=== PATIENT | female | born 1970 | race Two or more races ===

== ENCOUNTER 2018-09-15 14:24 | Emergency (ER) | payer SELFPAY ==
--- NOTE | 2018-09-15 14:45 | ER Report ---
History and Physical Time Seen By MD: 14:42 HPI/ROS CHIEF COMPLAINT: Right upper quadrant pain HISTORY OF PRESENT ILLNESS: This is a 40-year-old female presents to the emergency department for right upper quadrant pain. Patient states that over the last 2 weeks she's had increased abdominal pain, gassy, and intermittent very hard bowel movements. Patient states last problem was about 3 days ago. Patient denies chest pain or shortness of breath. She also states that it is abnormal for her to have no bowel movement in 3 days, normally she is regular. No rashes or any other concerns. No dysuria. REVIEW OF SYSTEMS: Constitutional: No fever, no chills. Eyes: No discharge. ENT: No sore throat. Cardiovascular: No chest pain, no palpitations. Respiratory: No cough, no shortness of breath. Gastrointestinal: As above. Genitourinary: No hematuria. Musculoskeletal: No back pain. Skin: No rashes. Neurological: No headache. Allergies: Coded Allergies: No Known Drug Allergies (Unverified , 09/15/18) Home Meds No Active Prescriptions or Reported Meds Past Medical/Surgical History The patient has a past medical and surgical history of asthma, tuberculosis, or bladder disease, hiatal hernia, left ankle fracture, "prediabetic". Reviewed Nurses Notes: Yes Constitutional Vital Sign - Last 24 Hours 09/15/18 09/15/18 09/15/18 09/15/18 14:47 14:49 14:54 15:00 Temp 98.5 Pulse 74 71 Resp 20 B/P (MAP) 143/87 143/87 (105) 120/79 (93) Pulse Ox 95 94 O2 Delivery Room Air 09/15/18 09/15/18 09/15/18 09/15/18 15:24 15:30 15:54 16:00 Pulse 73 69 71 B/P (MAP) 120/93 (102) Pulse Ox 91 93 97 09/15/18 09/15/18 09/15/18 16:30 17:00 17:30 B/P (MAP) 80/64 (69) 131/81 (98) 133/89 (104) Pulse Ox 95 Physical Exam General Appearance: The patient is alert, has no immediate need for airway protection and no signs of toxicity. Eyes: Pupils equal and round no pallor or injection. ENT, Mouth: Mucous membranes are moist. Respiratory: There are no retractions, lungs are clear to auscultation. Cardiovascular: Regular rate and rhythm, systolic murmur, no clicks or rubs. Gastrointestinal: Abdomen is very round, soft and tenderness to the right upper quadrant with palpation, distant but normoactive bowel sounds. No masses. No abdominal bruits. Neurological: Alert and oriented 4. Moving all extremities. Following all commands. No focal neuro deficits. Skin: Warm and dry, no rashes. Musculoskeletal: Neck is supple non tender. Extremities are nontender, nonswollen and have full range of motion. [ ] DIFFERENTIAL DIAGNOSIS: After history and physical exam differential diagnosis was considered for abdominal pain in a female including but not limited to ovarian cyst, pelvic inflammatory disease, ovarian torsion, urinary tract infection, constipation, and appendicitis. Medical Decision Making Data Points Result Diagram: 09/15/18 1557 09/15/18 1557 Laboratory Hematology Test 09/15/18 14:51 09/15/18 15:57 Urine Color Yellow Urine Clarity Clear Urine pH 5.0 pH (4.8-9.5) Urine Specific [place] 1.024 Urine Protein Negative mg/dL (NEGATIVE) Urine Glucose (UA) Negative mg/dL (NEGATIVE) Urine Ketones Negative mg/dL (NEGATIVE) Urine Blood Negative (NEGATIVE) Urine Nitrite Negative (NEGATIVE) Urine Bilirubin Negative (NEGATIVE) Urine Urobilinogen 4.0 mg/dL (0.2-1.9) Urine Leukocyte Esterase Negative (NEGATIVE) Urine RBC 1 /HPF (0-2/HPF) Urine WBC 4 /HPF (0-5/HPF) Urine Squamous Epithelial Cells Few /LPF (</=FEW) Urine Bacteria Many /HPF (NONE-FEW) Urine Mucus Few /HPF (NONE-FEW) Red Blood Count 4.99 M/uL (4.17-5.56) Mean Corpuscular Volume 79.0 fL (80.0-96.0) Mean Corpuscular Hemoglobin 26.2 pg (26.0-33.0) Mean Corpuscular Hemoglobin Concent 33.2 g/dL (32.0-36.0) Red Cell Distribution Width 14.3 % (11.5-14.5) Mean Platelet Volume 7.6 fL (7.2-11.1) Neutrophils (%) (Auto) 54.9 % (39.4-72.5) Lymphocytes (%) (Auto) 32.4 % (17.6-49.6) Monocytes (%) (Auto) 8.4 % (4.1-12.4) Eosinophils (%) (Auto) 3.8 % (0.4-6.7) Basophils (%) (Auto) 0.5 % (0.3-1.4) Nucleated RBC Relative Count (auto) 0.1 /100WBC Neutrophils # (Auto) 3.6 K/uL (2.0-7.4) Lymphocytes # (Auto) 2.1 K/uL (1.3-3.6) Monocytes # (Auto) 0.5 K/uL (0.3-1.0) Eosinophils # (Auto) 0.2 K/uL (0.0-0.5) Basophils # (Auto) 0.0 K/uL (0.0-0.1) Nucleated RBC Absolute Count (auto) 0.01 K/uL Sodium Level 140 mmol/L (137-145) Potassium Level 4.2 mmol/L (3.5-5.0) Chloride Level 102 mmol/L (98-107) Carbon Dioxide Level 26 mmol/L (22-31) Blood Urea Nitrogen 15 mg/dl (7-18) Creatinine 0.60 mg/dl (0.52-1.04) Glomerular Filtration Rate Calc > 60.0 Random Glucose 106 mg/dl (75-110) Calcium Level 9.1 mg/dl (8.4-10.2) Total Bilirubin 0.9 mg/dl (0.2-1.3) Aspartate Amino Transf (AST/SGOT) 45 U/L (0-35) Alanine Aminotransferase (ALT/SGPT) 76 U/L (0-56) Alkaline Phosphatase 63 U/L (0-126) Total Protein 8.3 g/dl (6.3-8.2) Albumin 4.1 g/dl (3.5-5.0) Lipase 116 U/L (23-300) Chemistry Test 09/15/18 14:51 09/15/18 15:57 Urine Color Yellow Urine Clarity Clear Urine pH 5.0 pH (4.8-9.5) Urine Specific [place] 1.024 Urine Protein Negative mg/dL (NEGATIVE) Urine Glucose (UA) Negative mg/dL (NEGATIVE) Urine Ketones Negative mg/dL (NEGATIVE) Urine Blood Negative (NEGATIVE) Urine Nitrite Negative (NEGATIVE) Urine Bilirubin Negative (NEGATIVE) Urine Urobilinogen 4.0 mg/dL (0.2-1.9) Urine Leukocyte Esterase Negative (NEGATIVE) Urine RBC 1 /HPF (0-2/HPF) Urine WBC 4 /HPF (0-5/HPF) Urine Squamous Epithelial Cells Few /LPF (</=FEW) Urine Bacteria Many /HPF (NONE-FEW) Urine Mucus Few /HPF (NONE-FEW) White Blood Count 6.5 k/uL (4.5-11.0) Red Blood Count 4.99 M/uL (4.17-5.56) Hemoglobin 13.1 g/dL (12.0-16.0) Hematocrit 39.5 % (34.0-47.0) Mean Corpuscular Volume 79.0 fL (80.0-96.0) Mean Corpuscular Hemoglobin 26.2 pg (26.0-33.0) Mean Corpuscular Hemoglobin Concent 33.2 g/dL (32.0-36.0) Red Cell Distribution Width 14.3 % (11.5-14.5) Platelet Count 312 K/uL (150-450) Mean Platelet Volume 7.6 fL (7.2-11.1) Neutrophils (%) (Auto) 54.9 % (39.4-72.5) Lymphocytes (%) (Auto) 32.4 % (17.6-49.6) Monocytes (%) (Auto) 8.4 % (4.1-12.4) Eosinophils (%) (Auto) 3.8 % (0.4-6.7) Basophils (%) (Auto) 0.5 % (0.3-1.4) Nucleated RBC Relative Count (auto) 0.1 /100WBC Neutrophils # (Auto) 3.6 K/uL (2.0-7.4) Lymphocytes # (Auto) 2.1 K/uL (1.3-3.6) Monocytes # (Auto) 0.5 K/uL (0.3-1.0) Eosinophils # (Auto) 0.2 K/uL (0.0-0.5) Basophils # (Auto) 0.0 K/uL (0.0-0.1) Nucleated RBC Absolute Count (auto) 0.01 K/uL Glomerular Filtration Rate Calc > 60.0 Calcium Level 9.1 mg/dl (8.4-10.2) Total Bilirubin 0.9 mg/dl (0.2-1.3) Aspartate Amino Transf (AST/SGOT) 45 U/L (0-35) Alanine Aminotransferase (ALT/SGPT) 76 U/L (0-56) Alkaline Phosphatase 63 U/L (0-126) Total Protein 8.3 g/dl (6.3-8.2) Albumin 4.1 g/dl (3.5-5.0) Lipase 116 U/L (23-300) Urinalysis Test 09/15/18 14:51 Urine Color Yellow Urine Clarity Clear Urine pH 5.0 pH (4.8-9.5) Urine Specific [place] 1.024 Urine Protein Negative mg/dL (NEGATIVE) Urine Glucose (UA) Negative mg/dL (NEGATIVE) Urine Ketones Negative mg/dL (NEGATIVE) Urine Blood Negative (NEGATIVE) Urine Nitrite Negative (NEGATIVE) Urine Bilirubin Negative (NEGATIVE) Urine Urobilinogen 4.0 mg/dL (0.2-1.9) Urine Leukocyte Esterase Negative (NEGATIVE) Urine RBC 1 /HPF (0-2/HPF) Urine WBC 4 /HPF (0-5/HPF) Urine Squamous Epithelial Cells Few /LPF (</=FEW) Urine Bacteria Many /HPF (NONE-FEW) Urine Mucus Few /HPF (NONE-FEW) EKG/Imaging Imaging Location: [facility] Patient: Dianna Mccord : 1970 Visit/Account:[id number] Date of Sevice: 09/15/2018 CT abdomen and pelvis with IV contrast Indication: Right abdominal and epigastric pain for 2 weeks. Comparison: None available. . Technique: Axial CT images were obtained through the abdomen and pelvis during injection of nonionic iodinated intravenous contrast. Reformatted coronal and sagittal images were also obtained. One of the following dose optimization techniques was utilized in the performance of this exam: Automated exposure control; adjustment of the mA and/or kV according to the patient's size; or use of an iterative reconstruction technique. Specific details can be referenced in the facility's radiology CT exam operational policy. Contrast: 75 ml of Isovue-370 IV contrast. Findings: Lower lung ann: Limited views lower lung field are unremarkable. Liver: No focal parenchymal abnormality of the liver. Biliary: Status post cholecystectomy. Biliary system is unremarkable postcholecystectomy. Pancreas: Normal appearance. Spleen: Normal appearance. Adrenal glands: Unremarkable. Kidneys / retroperitoneum: No evidence of nephrolithiasis or hydronephrosis. Each kidney shows a subcentimeter hypodensity which is too small characterize and statistically tiny cyst. Bowel / peritoneum / mesenteries: Colon shows no focal normality. The appendix is normal. Small bowel shows no focal normality or obstruction. The stomach is mainly decompressed and grossly normal. No free air, free fluid, fluid collections or areas of inflammation. Lymph node assessment: No pathologic adenopathy identified. Pelvic structures: The left side of the uterus does show a 1.6 cm hyperdense foci likely fibroid. Uterus shows no other focal abnormality. The left ovary does show a 1.5 cm cyst. The pelvic structures otherwise are unremarkable. Vessels: No significant atherosclerotic calcifications seen throughout a nonaneurysmal abdominal aorta and branches. Musculoskeletal / Body wall: No acute or aggressive osseous abnormality. IMPRESSION: 1. No acute intra-abdominal abnormality 2. Other chronic findings as above. Report Dictated By: Oscar Zaldivar at 09/15/2018 5:09 PM Report E-Signed By: Oscar Zaldivar at 09/15/2018 5:17 PM WSN:[id number] Location: [facility] Patient: Dianna Mccord : 1970 Visit/Account:[id number] Date of Sevice: 09/15/2018 Exam type: ACUTE ABDOMEN SERIES 3 VIEW History: constipation? abd pain Comparison: None. Findings: PA view the chest demonstrates no evidence of pulmonary infiltrates or pleural effusions. There appears be mild peribronchial thickening which could be chronic versus an acute peribronchial inflammatory process. A small ovoid area of increased density projects over the lateral aspect the left lung base. This could be artifactual from superimposed shadow versus a true pulmonary nodule. The cardiac silhouette appears mildly enlarged Supine and upright views of the abdomen demonstrates a nonspecific bowel gas pattern. Right lobe of the liver appears prominent at 23.7 cm in length. There are surgical clips the right upper quadrant abdomen.. The soft tissue fullness in the upper pelvis which could represent free pelvic fluid, fluid-filled loops of bowel or pelvic mass. IMPRESSION: 1. Mild peribronchial thickening which could be chronic versus an acute peribronchial inflammatory process Ovoid area of increased density projects over the lateral aspect the left lung base which could represent a superimposed shadow versus a true pulmonary nodule. Short-term follow-up chest or chest CT recommended Nonspecific bowel gas pattern Right lobe of the liver appears prominent There is soft tissue fullness in the pelvis represent free pelvic fluid, fluid- filled loops of bowel or pelvic mass Report Dictated By: Matilde Hauser MD at 09/15/2018 3:29 PM Report E-Signed By: Matilde Hauser MD at 09/15/2018 3:32 PM WSN:[email or web address] ED Course/Re-evaluation ED Course The patient was admitted to a room. A history and physical were obtained. Differential diagnoses were considered. On initial examination and discussion with the patient's and no bowel movement on a regular basis for the last 3 days, I started with a three-view abdomen, not showing definitive constipation. I therefore talked with the patient regarding the imaging results, we decided to CT the abdomen and pelvis, an IV was started. A 1 L normal saline bolus was given. A CBC, CMP were obtained. Lab studies unremarkable. Negative UA. CT of t he abdomen and pelvis was negative for any acute intra-abdominal abnormalities. I did review these results with the patient, I did tell her that I feel that she still has some slow stool transit, consistent with some mild constipation, I did recommend stool softeners, MiraLAX as well as some prune juice. As the patient will be here for probably the next couple of months due to her 's employ ment status, I did recommend following up with a local provider. Patient exposed understanding and was discharged home. Patient had no other questions or concerns. Patient also states having improved abdominal pain after the saline bolus. Decision to Disposition Date: Sep 15, 2018 Decision to Disposition Time: 18:06 Depart Departure Latest Vital Signs Vital Signs Date Time Temp Pulse Resp B/P (MAP) Pulse Ox O2 Delivery O2 Flow Rate FiO2 09/15/18 17:30 133/89 (104) 09/15/18 16:30 95 09/15/18 16:00 71 09/15/18 14:47 98.5 20 Room Air Impression: Primary Impression: Abdominal pain Additional Impression: Slow transit constipation Condition: Improved Disposition: HOME OR SELF-CARE New Scripts No Active Prescriptions or Reported Meds Patient Instructions: Abdominal Pain (ED), Constipation (ED) Additional Instructions: Drink plenty of water. Get plenty of rest. I would recommend mirilax, 1/2 cap once a day for a week to see if this will help. You can also continue with the prunes, if you need, you can always try an enema. I would also recommend following up with an provider here locally that can monitor you care over then next couple of months. Get plenty of rest. Return to the ED for any other concerns or worsening symptoms. Problem Qualifiers Primary Impression: Abdominal pain Abdominal location: generalized Qualified Codes: R10.84 - Generalized abdominal pain GRANT FINN-LINWOOD Sep 15, 2018 14:45
--- NOTE | 2018-09-15 15:37 | RADIOLOGY IMAGING REPORT ---
FACILITY: [facility] PATIENT NAME: Dianna Mccord : 1970 MR: [id number] V: [id number] EXAM DATE: [id number] ORDERING PHYSICIAN: GRANT FINN TECHNOLOGIST: Location: [facility] [place] Patient: Dianna Mccord : 1970 Visit/Account:[id number] Date of Sevice: 09/15/2018 Exam type: ACUTE ABDOMEN SERIES 3 VIEW History: constipation? abd pain Comparison: None. Findings: PA view the chest demonstrates no evidence of pulmonary infiltrates or pleural effusions. There appe ars be mild peribronchial thickening which could be chronic versus an acute peribronchial inflammatory process. A small ovoid area of increased density projects over the latera l aspect the left lung base. This could be artifactual from superimposed shadow versus a true pulmon marlee nodule. The cardiac silhouette appears mildly enlarged Supine and upright views of the abdomen demonstrates a nonspecific bowel gas pattern. Right lobe of the liver appears prominent at 23.7 cm in length. There are surgical clips the right upper quadrant abdomen.. The soft tissue fullness in the upper pelvis which could represent free pelvic fluid, flui d-filled loops of bowel or pelvic mass. IMPRESSION: 1. Mild peribronchial thickening which could be chronic versus an acute peribronchial inflammatory p rocess Ovoid area of increased density projects over the lateral aspect the left lung base which could repre sent a superimposed shadow versus a true pulmonary nodule. Short-term follow-up chest or chest CT re commended Nonspecific bowel gas pattern Right lobe of the liver appears prominent There is soft tissue fullness in the pelvis represent free pelvic fluid, fluid-filled loops of bowel or pelvic mass Report Dictated By: Matilde Hauser MD at 09/15/2018 3:29 PM Report E-Signed By: Matilde Hauser MD at 09/15/2018 3:32 PM WSN:[email or web address]
[2018-09-15] MEDS ORDERED: NS(*) 0.9% 1000 ML BAG 1,000 ML IV ONE (15:40)
[2018-09-15 16:11] LABS: PLATELET COUNT, AUTOMATED 312 K/uL (150-450)
[2018-09-15] MEDS ORDERED: IOPAMIDOL 76% 75 ML INFUS BTL 75 ML ONE (16:12)
--- NOTE | 2018-09-15 17:21 | RADIOLOGY IMAGING REPORT ---
FACILITY: [facility] [place] PATIENT NAME: Dianna Mccord : 1970 MR: [id number] V: [id number] EXAM DATE: ORDERING PHYSICIAN: GRANT FINN TECHNOLOGIST: Location: [facility] [place] Patient: Dianna Mccord : 1970 Visit/Account:[id number] Date of Sevice: 09/15/2018 CT abdomen and pelvis with IV contrast Indication: Right abdominal and epigastric pain for 2 weeks. Comparison: None available. . Technique: Axial CT images were obtained through the abdomen and pelvis during injection of nonioni c iodinated intravenous contrast. Reformatted coronal and sagittal images were also obtained. One of the following dose optimization techniques was utilized in the performance of this exam: Autom ated exposure control; adjustment of the mA and/or kV according to the patient's size; or use of an i terative reconstruction technique. Specific details can be referenced in the facility's radiology C T exam operational policy. Contrast: 75 ml of Isovue-370 IV contrast. Findings: Lower lung ann: Limited views lower lung field are unremarkable. Liver: No focal parenchymal abnormality of the liver. Biliary: Status post cholecystectomy. Biliary system is unremarkable postcholecystectomy. Pancreas: Normal appearance. Spleen: Normal appearance. Adrenal glands: Unremarkable. Kidneys / retroperitoneum: No evidence of nephrolithiasis or hydronephrosis. Each kidney shows a subc entimeter hypodensity which is too small characterize and statistically tiny cyst. Bowel / peritoneum / mesenteries: Colon shows no focal normality. The appendix is normal. Small bowel shows no focal normality or obstruction. The stomach is mainly decompressed and grossly normal. No free air, free fluid, fluid collections or areas of inflammation. Lymph node assessment: No pathologic adenopathy identified. Pelvic structures: The left side of the uterus does show a 1.6 cm hyperdense foci likely fibroid. Uterus shows no other focal abnormality. The left ovary does show a 1.5 cm cyst. The pelvic structure s otherwise are unremarkable. Vessels: No significant atherosclerotic calcifications seen throughout a nonaneurysmal abdominal aort a and branches. Musculoskeletal / Body wall: No acute or aggressive osseous abnormality. IMPRESSION: 1. No acute intra-abdominal abnormality 2. Other chronic findings as above. Report Dictated By: Oscar Zaldviar at 09/15/2018 5:09 PM Report E-Signed By: Oscar Zaldivar at 09/15/2018 5:17 PM WSN:[id number]
[2018-09-15 17:30] VITALS: BP 133/89
== END 2018-09-15 18:27 | disposition home or self-care (01) ==
LOC: EDBD 14:24 → ER 15:58
DX: R10.84 Generalized abdominal pain (principal); K59.00 Constipation, unspecified
CPT/HCPCS: 74022; 74177; 81001; 83690; 85025; 96360; 96361; 99284; J7030; Q9967; 82040; 82247; 82310; 82374; 82435; 82565; 82947; 84075; 84132; 84155; 84295; 84450; 84460; 84520